=== PATIENT | female | born 2000 | race Caucasian/White ===

== ENCOUNTER 2024-11-12 14:38 | Emergency (ER) | payer BC, SELFPAY ==
[2024-11-12 14:49] VITALS: BP 109/80; PULSE 85; RESP 14; TEMP 36.8; O2SAT 99; BMI 27.0
--- NOTE | 2024-11-12 14:50 | ED_ITS ---
HPI - General Adult General Chief complaint: Weakness Stated complaint: feels faint Time Seen by Provider: 11/12/24 15:05 Related Data Allergies Allergy/AdvReac Type Severity Reaction Status Date / Time No Known Allergies Allergy Verified 11/12/24 14:52 [facility] Social History Social History Advance Directives: No Advance Directives Information Provided: No Do you have a plan to hurt others: No Plan Physical Exam ED Vital Signs: Vital Signs - 24 hr 11/12/24 14:49 11/12/24 16:26 11/12/24 16:27 Temperature 98.3 F Pulse Rate 85 60 58 Respiratory Rate 14 Blood Pressure 109/80 101/67 102/65 Pulse Oximetry 99 Oxygen Delivery Method Room Air 11/12/24 16:28 11/12/24 16:32 Temperature 98.5 F Pulse Rate 68 68 Respiratory Rate 16 Blood Pressure 115/58 L 115/58 L Pulse Oximetry 99 Oxygen Delivery Method Room Air BMI result Body Mass Index 27.0 Course Course Course Narrative: RME performed by Emily Mckeon PA-C. Patient is a 24 year old assigned female at presenting to the emergency department with feeling faint. Patient states that she has been feeling faint over the last 3-4 days. Patient states that she was seen at [facility] where they did a work up and it was negative but her symptoms persist. Detailed physical exam and review of systems are deferred to the gluer. EKG, labs, and swabs ordered. Patient placed back in the waiting room pending room availability and results. Medical Decision Making Medical Decision Making [facility] Narrative: 24-year-old female who is here now with her 2nd ED visit in the last 3 days she was seen at [facility] with basic blood work tell me she was diagnosed with anemia few days ago. She generally has intermittent episodes of generalized weakness feeling like her legs are weak all over she feels generally unwell has to lay down flat. No syncope presyncope. Denies headache palpitations. Her colleagues the other day said when she got when he is episode she appeared slightly pale. No heavy vaginal bleeding she does not take any prescribed medication she has intermittently and occasionally taken actual Gonda over the past few days. Here in the emergency department she looks quite well she is euvolemic comfortable in no distress and has a normal physical examination. Bedside echo reassuring see procedure note. Lab Data [facility] Lab Attestation statement: I reviewed the patient's lab results. 11/12/24 15:23 11/12/24 15:23 Labs: Lab Results 11/12/24 11/12/24 Range/Units 15:23 16:11 WBC 8.6 (4.8-10.8) X10*3/uL RBC 4.01 L (4.20-5.50) X10*6/uL Hgb 11.6 L (12.0-16.0) g/dl Hct 34.6 L (37.0-47.0) % MCV 86.3 (80.0-98.0) fL MCH 28.9 (27.0-33.0) pg MCHC 33.5 (31.0-35.0) g/dl RDW 12.2 (11.0-16.0) % Plt Count 231 (160-400) X10*3/uL MPV 10.5 (9.4-12.3) fL Immature Gran % (Auto) 0.1 (0.0-0.4) % Neut % (Auto) 65.0 (45-73) % Lymph % (Auto) 24.8 (20-40) % [place] % (Auto) 8.3 (2-11) % Eos % (Auto) 1.2 (0-4) % Baso % (Auto) 0.6 (0-2) % Lymph # (Auto) 2.1 (1.2-4.9) X10*3/uL [place] # (Auto) 0.7 (0.1-1.2) X10*3/uL Eos # (Auto) 0.1 (0.0-0.4) X10*3/uL Baso # (Auto) 0.1 (0.0-0.2) X10*3/uL Abs Immat Gran (auto) 0.01 (0.00-0.03) X10*3/uL Absolute Neuts (auto) 5.6 (2.0-8.3) x10*3/uL Absolute Nucleated RBC 0.000 (0.0-0.012) X10*3/uL Nucleated RBC % (auto) 0.0 (0.0-0.2) /100WBC PT 11.9 (10.9-12.4) SEC INR 1.0 (0.9-1.1) Sodium 139 (135-145) mmol/L Potassium 4.2 (3.3-5.1) mmol/L Chloride 107 (96-108) mmol/L Carbon Dioxide 25 (22-29) mmol/L Anion Gap 11 L (12-20) BUN 11 (9-16) mg/dL Creatinine 0.71 (0.5-1.4) mg/dL Estim Creat Clear Calc 131.6 Estimated GFR > 60 Random Glucose 85 (60-115) mg/dL Calcium 9.4 (8.4-10.2) mg/dL Magnesium 2.1 (1.6-2.6) mg/dL Total Bilirubin 0.3 (0.0-1.0) mg/dL AST 23 (5-31) U/L ALT 20 (0-31) U/L Alkaline Phosphatase 44 (39-117) U/L Total Protein 7.3 (6.5-8.0) g/dL Albumin 4.3 (3.5-5.0) g/dL TSH 1.32 (0.32-4.0) uIU/mL Beta HCG, Quant < 2 mIU/mL Urine Color Yellow Urine Appearance Clear Urine pH 8.0 (5.0-9.0) Ur Specific [place] 1.010 (1.005-1.025) Urine Protein Negative (Neg-Trace) mg/dL Urine Glucose (UA) Negative (Negative) mg/dL Urine Ketones Negative (Negative) mg/dL Urine Blood Negative (Negative) Urine Nitrite Negative (Negative) Ur Leukocyte Esterase Negative (Negative) Influenza Type A (PCR) NEGATIVE (Negative) Influenza Type B (PCR) NEGATIVE (Negative) RSV RNA Qual (PCR) NEGATIVE (Negative) SARS-CoV-2 RNA (RT-PCR) NEGATIVE (Negative) Independent Interpretation I performed an independent interpretation of an: EKG Discharge Plan Discharge Clinical Impression: Acute dehydration Patient Disposition: Home, Self-Care Instructions: Dehydration (DC) Additional Instructions: _ DISCHARGE DIAGNOSES: GENERALIZED WEAKNESS OF THE LEGS INTERMITTENT SPELLS OF LIGHTHEADEDNESS HISTORY OF PRESENTATION: EMERGENCY DEPARTMENT COURSE,TESTS, TREATMENTS: While in the ED today ?WE EVALUATED WITH BLOOD WORK WHICH SHOWED VERY MILD ANEMIA YOUR HEMOGLOBIN IS 11.6 HE HAD A NORMAL EKG AND A NORMAL REASSURING ECHOCARDIOGRAM DISCHARGE MEDICATIONS: ?[We have made no changes to your regular medication regimen] FOLLOW-UP: ?Call your primary or general physician soon as possible to discuss your symptoms, your ED visit and to discuss follow up plans CALL YOUR PRIMARY DOCTOR FOR FOLLOW UP INSTRUCTIONS ?& RETURN PRECAUTIONS: If any symptoms change first call your primary physician, if it is after-hours your primary doctors office should have a provider wireless construction manager you can speak with. If the symptoms are severe or very concerning to you then call 911 or return to the ED. DRINK PLENTY OF FLUID WE RECOMMEND AGAINST USING SUPPLEMENTS THAT ARE NOT REGULATED BY THE FDA SUCH [place]DA Michael Mcpherson MD Emergency Physician [facility] Interventions: ED Discharge Assessment Last Done: 11/12/24 16:32 Discharge Date/Time: 11/12/24 16:33 Print Language: Yoruba
--- NOTE | 2024-11-12 14:51 | ECG_ITS ---
Test Reason : WEAKNESS Blood Pressure : */* mmHG Vent. Rate : 64 BPM Atrial Rate : 64 BPM P-R Int : 154 ms QRS Dur : 106 ms QT Int : 406 ms P-R-T Axes : 43 70 47 degrees QTcB Int : 418 ms Normal sinus rhythm with sinus arrhythmia Normal ECG No previous ECGs available Referred By: Emily Mckeon Electronically Signed By: KIRAN KAUR
[2024-11-12 15:32] LABS: MANUAL DIFF FLAG NO
[2024-11-12 15:35] LABS: Basophils Absolute Auto 0.1 X10*3/uL (0.0-0.2); Basophils Percent Auto 0.6 % (0-2); Eosinophils Absolute Auto 0.1 X10*3/uL (0.0-0.4); Eosinophils Percent Auto 1.2 % (0-4); Hematocrit 34.6 % (37.0-47.0); Hemoglobin 11.6 g/dl (12.0-16.0); Imm Gran Abs Auto 0.01 X10*3/uL (0.00-0.03); Imm Gran Pct Auto 0.1 % (0.0-0.4); Lymphocytes Absolute Auto 2.1 X10*3/uL (1.2-4.9); Lymphocytes Percent Auto 24.8 % (20-40); Mean Corpuscular HGB Conc 33.5 g/dl (31.0-35.0); Mean Corpuscular Hemoglobin 28.9 pg (27.0-33.0); Mean Corpuscular Volume 86.3 fL (80.0-98.0); Mean Platelet Volume 10.5 fL (9.4-12.3); Monocytes Absolute Auto 0.7 X10*3/uL (0.1-1.2); Monocytes Percent Auto 8.3 % (2-11); Neutrophils Absolute Auto 5.6 x10*3/uL (2.0-8.3); Platelet Count 231 X10*3/uL (160-400); Red Blood Count 4.01 X10*6/uL (4.20-5.50); Red Cell Distribution Width 12.2 % (11.0-16.0); White Blood Count 8.6 X10*3/uL (4.8-10.8)
[2024-11-12 15:41] LABS: Prothrombin Time 11.9 SEC (10.9-12.4)
--- OUTSIDE RECORDS SUMMARY | 2024-11-12 15:45 | XMS_ITS | Clinical Summary ---
Author Organization [facility] [employer] [facility] Address [address] [place] [address] Care Team Providers Care Health Information Manager Name Role Phone Dalia Bergman MD Primary Care Provider Allergies No known active allergies Medications fluticasone propionate (FLONASE) 50 mcg/actuation nasal spray 2 sprays into each nostril. 07/16/2016 Active loratadine (CLARITIN) 10 mg tablet Take 10 mg by mouth. Active Social History Tobacco Use Types Packs/Day Years Used Date Smoking Tobacco: Never Smokeless Tobacco: Never Comments No Sex and Gender Information Value Date Recorded Sex Assigned at Not on file Legal Sex Female 4:37 PM EST Gender Identity Not on file Sexual Orientation Not on file Last Filed Vital Signs Vital Sign Reading Time Taken Comments Blood Pressure 110/70 06/11/2019 4:51 PM EST Pulse 78 06/11/2019 4:51 PM EST Temperature 37.1 ??C (98.7 ??F) 06/11/2019 4:51 PM ES T Respiratory Rate 16 06/11/2019 4:51 PM EST Oxygen Saturation 98% 06/11/2019 4:51 PM EST Inhaled Oxygen Concentration - - Weight - - Height - - Body Mass Index - - Plan of Treatment Health Maintenance Due Date Last Done Comments Depression: Screening Annually using PHQ-2/9 in Adults 18 yrs or above (or HM Modifier)([facility]) 2018 Hepatitis C Virus Infection in Adolescents and Adults: Screening (or Modifier) ([facility]) 2018 SDOH Screening Reminder: Annually for all adults ([facility]) 2018 Tobacco Smoking Cessation: i n Adults excluding Women: Behavioral and Pharmacotherapy Interventions ([facility]) 2018 Lipid Screening: Once for Women aged 20 to 45 yrs ([facility]) 2020 Cervical Cancer Screenin-65 yrs of age (or Modifier) 2021 Cervical Cancer Screening: Pap every 3 yrs pts age 21-65 2021 Cervical Cancer: Pap Screening with Modifier timing ([facility]) 2021 Cervical Cancer: hrHPV alone or with cotesting Pap for Pts 30-65yrs screening every 5yrs ([facility]) 2021 DTaP/Tdap/Td Vaccines ([facility]) (7 - Td or Tdap) 11/17/2021 11/18/2011, 06/13/2004, 07/27/2001, Additional history exists COVID-19 Vaccine Screening: Initial Series and Booster Status ([facility]) (2023- season) 2024 Flu Vaccination: Yearly for ages 18mos through 64 years (or Modifier)([facility]) 02/03/2025 Zoster/Shingles Vaccine Series Screening: Adults aged 18+ yrs (or HM Modifiers)([facility]) (1 of 2) 2050 03/15/2010, 05/04/2001 Pneumococcal Vaccination Screening: Pts 0-19 & 19-49 yrs of age ([facility]) Aged Out 05/04/2001, 2000, 2000, Additional history exists No longer eligible based on patient's age to complete this topic Medical Devices Not on file Insurance [facility] Care Teams Health Information Manager Relationship Specialty Start Date End Date Bishai, Dalia Aziz, MD [address] [place] [address] PCP - Printer Operator 06/11/19
--- OUTSIDE RECORDS SUMMARY | 2024-11-12 15:45 | XMS_ITS | Clinical Summary ---
Author Organization [facility] Address [address] [place] [id number] Phone Care Team Providers Care Aircraft Launch And Recovery Technician Name Role Phone Unavailable Primary Care Provider Unavailabl e Allergies No known active allergies Medications fluticasone 50 MCG/ACT nasal spray Administer 2 sprays into affected nostril(s). 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 Routine infant or child health check 06/26/2016 Deviated nasal septum 02/13/2012 Allergic rhinitis 11/18/2011 Attention deficit disorder 12/20/2010 Immunizations Immunization Administration Dates Next Due DTaP 06/13/2004, 2,2000,09/15,2000 Hep B 01/19/2001,2000,2000 HiB 07/27/2001, 1,2000,07/21 IPV 06/13/2004, 2,2000,07/21 Influenza 03/15/2010 Influenza, injectable, quadr ivalent, preservative free 06/26/2016 MMR 06/13/2004,05/04/2001 Meningococcal Conj (Menactra) MCV4P 11/18/2011 Pneumococcal, Unspecified 05/04/2001,,2000,07/21 Tdap 11/18/2011 Varicella 03/15/2010,05/04/2001 Family History Relation Name Status Comments Other MOM WAS IN COMA DUE TO ENCEPHALITIS, IN HALF-WAY, STABLE, dementia Social History Tobacco Use Types Packs/Day Years Used Date Smoking Tobacco: Never Comments:never smoker Comments Unknown Sex and Gender Information Value Date Recorded Sex Assigned at Not on file Legal Sex Female 7:12 PM EDT Gender Identity Not on file Sexual Orientation Not on file Last Filed Vital Signs Vital Sign Reading Time Taken Comments Blood Pressure 110/60 06/26/2016 11:33 AM EST Pulse 88 06/02/2018 9:19 AM EST Temperature 36.9 ??C (98.5 ??F) 08/11/2017 3:10 PM ES T Respiratory Rate - - Oxygen Saturation - - Inhaled Oxygen Concentration - - Weight 73.9 kg (163 lb) 06/02/2018 9:19 AM EST Height 169.5 cm (5' 6.75 ) 06/26/2016 11:[address] Body Mass Index - - Plan of Treatment Health Maintenance Due Date Last Done Comments HPV Vaccines (1 - 3-dose series) 2015 Men B Vaccine (2 of 2 - Trumenba SCDM 2-dose series) 11/09/2019 05/11/2019 DTaP,Tdap,and Td Vaccines (7 - Td or Tdap) 11/17/2021 11/18/2011, 06/13/2004, 07/27/2001, Additional history exists Influenza Vaccines (#1) 2024 06/26/2016, 03/15 COVID-19 Vaccine ( season) 2024 11/29/2020, 11/01/2020 Hepatitis B Vaccines Completed 01/19/2001, 2000, 2000 Pneumococcal Vaccine Aged Out 05/04/2001, 2000, 2000, Additional history exists No longer eligible based on patient's age to complete this topic HIB Vaccines Completed 07/27/2001, 10/05, 2000, Additional history exists IPV Vaccines Completed 06/13/2004, 07/07, 2000, Additional history exists MMR Vaccines Completed 06/13/2004, 05/04/2001 Varicella Vaccines Completed 03/15/2010, 05/04/2001 Meningococcal Vaccine Aged Out 11/18/2011 No justine vivien eligible based on patient's age to complete this topic Hepatitis A Vaccines Aged Out No long er eligible based on patient's age to complete this topic Insurance [facility]
--- OUTSIDE RECORDS SUMMARY | 2024-11-12 15:45 | XMS_ITS | Referral Summary ---
Author Organization [facility] Address [address] [place] [address] Care Team Providers Care Field Checker Name Role Phone Unavailable Primary Care Provider Unavailabl e Encounters Date Type Department Care Team Description 08/27/2024 11:38 AM EST - 08/27/2024 2:31 PM [facility] [address] [place] [id number] Ernesto Talbot MD Dizziness (Primary Dx) Discharge Disposition: Home/Self Care 08/26/2024 Travel 08/26/2024 12:42 PM EST - 08/26/2024 2:06 PM [facility] [address] [place] [id number] Discharge Disposition: Left Without Being Seen from Last 3 Months Allergies No known active allergies Medications * This document contains information received from the source organization and may not represent a complete record from that organization. loratadine (Claritin) 10 MG tablet Take 10 mg by mouth 1 (one) time each day. Active albendazole (Albenza) 200 MG tablet Take 400mg PO once. Then repeat in 2 weeks. 4 tablet 2 Active methylPREDNISol one (Medrol Dospak) 4 MG tablets Follow schedule on package instructions. 21 tablet 3 Active Additional Information Patient not taking.Reported on 05/26/2024 Sronyx 0.1-20 MG-MCG tablet 3 Active albuterol (Proventil;Vent prince) 108 (90 Base) MCG/ACT inhaler Inhale 2 puffs every 4 (four) hours if needed for wheezing. 18 g 3 Active Active Problems Problem Noted Date Diagnosed Date Viral illness 06/18/2021 Viral upper respiratory tract infection 06/18/20 21 Allergies 03/05/2021 Assessment & Plan (03/05/2021 2:19 PM EDT): On Claritin on a needed basis Attention deficit hyperactivity disorder (ADHD) 03/05/2021 Assessment & Plan (03/05/2021 2:20 PM EDT): Patient will schedule an appointment with psychiatrist to consider resuming medication for ADHD Annual physical exam 02/16/2021 Assessment & Plan (03/05/2021 2:18 PM EDT): She was advice regarding diet and exercise under take measures aimed at achieving and maintaining body weight closer to ideal weight Hypopigmentation 02/16/2021 Assessment & Plan (03/05/2021 2:19 PM EDT): Patient indicated that the hypopigmentation on her back has resolved Anxiety 02/05/2021 Assessment & Plan (03/05/2021 2:18 PM EDT): Continue ongoing Therapy with Dr. 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 Deviated nasal septum 02/13/2012 Allergic rhinitis 11/18/2011 Immunizations Name Administration Dates Next Due DTaP 06/13/2004, 2,2000,09/15,2000 Hep B, Unspecified 01/19/2001,2000, 000 HiB 07/27/2001, 1,2000,07/21 IPV 06/13/2004, 2,2000,07/21 Influenza, Quadrivalent, Pre servative Free 06/26/2016 Influenza, Unspecified 03/15/2010 MMR 06/13/2004,05/04/2001 Meningococcal B Vaccine, Recombinant 05/10/2019 Meningococcal MCV4P 11/18/2011 Pneumococcal, Unspecified 05/04/2001,,2000,07/21 Tdap 11/18/2011 Varicella (VARIVAX) 03/15/2010,05/04/2001 Social History Tobacco Use Types Packs/Day Years Used Date Smoking Tobacco: Never Smokeless Tobacco: Never Alcohol Use Standard Drinks/Week Comments Yes 0 (1 standard drink = 0.6 oz pure alcohol) Do you drink alcohol? No ,Did you have a drink containing alcohol in the past year?: No [id number] Health Literacy Answer Date Recor ded How often do you need to hav e someone help you when you read instructions, pamphlets, or other written material from your doctor or pharmacy? Never 08/27/2024 Comments No Sex and Gender Information Value Date Recorded Sex Assigned at Female 04/18/2024 1:26 PM EDT Legal Sex Female 10:55 PM EDT Gender Identity Female 04/18/2024 1:26 PM EDT Sexual Orientation Straight 04/18/2024 1: 26 PM EDT Last Filed Vital Signs Vital Sign Reading Time Taken Comments Blood Pressure 110/67 08/27/2024 2:00 PM EST Pulse 79 08/27/2024 2:00 PM EST Temperature 36.8 ??C (98.3 ??F) 08/27/2024 11:[address] Respiratory Rate 17 08/27/2024 2:00 PM EST Oxygen Saturation 99% 08/27/2024 2:00 PM EST Inhaled Oxygen Concentration - - Weight 78 kg (172 lb) 08/27/2024 11:36 AM EST Height 170.2 cm (5' 7 ) 08/27/2024 11:36 AM EST Body Mass Index 26.94 08/27/2024 11:36 AM EST Functional Status * Are you deaf or do you have serious difficulty hearing? Answer Date of Assessment Author No 08/27/2024 11:52 AM EST * Are you blind or do you have serious difficulty seeing, even when wearing glasses? Answer Date of Assessment Author No 08/27/2024 11:52 AM EST Gisel Becerra, SANDIE Plan of Treatment Not on file Procedures Procedure Name Priority Date/Time Associated Diagnosis Comments URINALYSIS WITH REFLEX MICROSCOPIC AND CULTURE STAT 08/27/2024 12:35 PM EST HCG, URINE, QUALITATIVE STAT 08/27/2024 12:35 PM EST ECG 12-LEAD STAT 08/27/2024 12:08 PM EST CBC W/AUTO DIFFERENTIAL STAT 08/27/2024 12:06 PM EST TSH W/REFLEX FT4 STAT 08/27/2024 12:0 6 PM EST MAGNESIUM STAT 08/27/2024 12:06 PM EST COMPREHENSIVE METABOLIC PANEL STAT 08/27/2024 12:06 PM EST CBC W/AUTO DIFFERENTIAL STAT 08/27/2024 12:06 PM EST from Last 3 Months Results * hCG, urine, qualitative (08/27/2024 12:35 PM EST) Internal Control Line Confirmed 08/27/2024 12:46 PM [facility] HCG QUAL, UR Negative Negative 08/27/2024 12:46 PM [facility] Urine Urine specimen obtained by clean catch procedure / Unknown Non-blood Collection / Unknown 08/27/2024 12:35 PM EST 08/27/2024 12:41 PM EST us Ernesto Talbot MD LAB URINE ORDERABLES Final Re sult [address] [id number] * Urinalysis with Reflex microscopic and culture (08/27/2024 12:35 PM EST) Color, Urine Yellow Yellow, Dark Yellow 08/27/2024 12:48 PM [facility] Appearance, Urine Clear Clear, Slightly Cloudy 08/27/2024 12:48 PM [facility] Glucose, Urine Negative Negative mg/dL 08/27/2024 12:48 PM [facility] Bilirubin, Urine Negative Negative 08/27/2024 12:48 PM [facility] Ketone, Urine Negative Negative mg/dL 08/27/2024 12:48 PM [facility] Specific [place], Urine 1.022 1.001 - 1.030 08/27/2024 12:48 PM [facility] pH, Urine 7.5 5.0 - 8.0 08/27/2024 12:48 PM [facility] Protein, Urine Negative Negative mg/dL 08/27/2024 12:48 PM [facility] Urobilinogen, Urine 0.2 0.2 - 1.0 EU/dL 08/27/2024 12:48 PM [facility] Nitrites, Urine Negative Negative 08/27/2024 12:48 PM [facility] Leukocyte Esterase, Urine Negative Negative 08/27/2024 12:48 PM [facility] Hemoglobin, Urine Negative Negative 08/27/2024 12:48 PM [facility] Urine Urine specimen obtained by clean catch procedure / Unknown Non-blood Collection / Unknown 08/27/2024 12:35 PM EST 08/27/2024 12:41 PM EST us Ernesto Talbot MD LAB URINE ORDERABLES Final Re sult [address] [address] * EKG 12 lead (08/27/2024 12:08 PM EST) MUSE DIAGNOSIS CLASS Normal [facility] MUSE VENTRICULAR RATE 66 BPM [facility] MUSE ATRIAL RATE 66 BPM [facility] MUSE MA INTERVAL 172 ms [facility] MUSE QRS DURATION 102 ms [facility] MUSE QT INTERVAL 398 ms [facility] MUSE QTC CALCULATION 417 ms [facility] MUSE P AXIS 33 degrees [facility] MUSE R AXIS 59 degrees [facility] MUSE T AXIS 29 degrees [facility] 08/27/2024 12:0 8 PM EST 08/28/2024 2:12 PM EST Narrative [facility] - 08/28/2024 2:12 PM EST NORMAL SINUS RHYTHM NORMAL ECG WHEN COMPARED WITH ECG OF 09-Jan-2024 08:53, NO SIGNIFICANT CHANGE WAS FOUND Confirmed by Wicho Oliver ([id number]) on 08/28/2024 2:12:32 PM Procedure Note Wicho Oliver MD - 08/28/2024 NORMAL SINUS RHYTHM NORMAL ECG WHEN COMPARED WITH ECG OF 09-Jan-2024 08:53, NO SIGNIFICANT CHANGE WAS FOUND Confirmed by Wicho lOiver ([id number]) on 08/28/2024 2:12:32 PM us Ernesto Talbot MD ECG ORDERABLES Final Result [facility] * TSH W/REFLEX FT4 (08/27/2024 12:06 PM EST) [facility] THYROID STIM HORM 1.217 0.550 - 4.780 uIU/mL 08/27/2024 12:31 PM [facility] Blood Venous blood specimen / Unknown Venipuncture / Unknown 08/27/2024 12:06 PM EST 08/27/2024 12:09 PM EST us Ernesto Talbot MD LAB BLOOD ORDERABLES Final Re sult [address] [address] * CBC W/AUTO DIFFERENTIAL (08/27/2024 12:06 PM EST) [facility] Auto WBC 5.8 4.0 - 10.0 1000/uL 08/27/2024 12:12 PM [facility] Red Blood Count 4.06 3.93 - 5.22 Million/uL 08/27/2024 12:12 PM [facility] Hemoglobin 11.9 11.2 - 15.7 g/dL 08/27/2024 12:12 PM [facility] Hematocrit 34.4 34.1 - 44.9 % 08/27/2024 12:12 PM [facility] MCV 84.7 79.4 - 94.8 fL 08/27/2024 12:12 PM [facility] MCH 29.3 25.6 - 32.2 pg/RBC 08/27/2024 12:12 PM [facility] MCHC 34.6 32.2 - 35.5 g/dL 08/27/2024 12:12 PM [facility] RDWSD 37.3 36.4 - 46.3 Fl 08/27/2024 12:12 PM [facility] Platelets 223 182 - 369 1000/uL 08/27/2024 12:12 PM [facility] Mean Platelet Volume 10.5 9.4 - 12.3 fL 08/27/2024 12:12 PM [facility] Neutrophils Relative 50.6 34.0 - 71.1 % 08/27/2024 12:12 PM [facility] Lymphocytes Relative 37.4 19.3 - 51.7 % 08/27/2024 12:12 PM [facility] Monocytes Relative 9.0 4.7 - 12.5 % 08/27/2024 12:12 PM [facility] Eosinophils Relative 2.1 0.7 - 5.8 % 08/27/2024 12:12 PM [facility] Basophils Relative 0.7 0.1 - 1.2 % 08/27/2024 12:12 PM [facility] NUCLEATED RBC % - AUTOMATED 0.0 0.0 - 0.2 % 08/27/2024 12:12 PM [facility] Neutrophils Absolute 2.94 1.56 - 6.13 1000/uL 08/27/2024 12:12 PM [facility] Lymphocytes Absolute 2.17 1.18 - 3.74 1000/uL 08/27/2024 12:12 PM [facility] Monocytes Absolute 0.52 0.30 - 0.82 1000/uL 08/27/2024 12:12 PM [facility] Eosinophils Absolute 0.12 0.04 - 0.36 1000/uL 08/27/2024 12:12 PM [facility] Basophils Absolute 0.04 0.01 - 0.08 1000/uL 08/27/2024 12:12 PM [facility] ABSOLUTE NUCLEATED RBC 0.00 0 - 0.01 k/ul 08/27/2024 12:12 PM [facility] Blood Venous blood specimen / Unknown Venipuncture / Unknown 08/27/2024 12:06 PM EST 08/27/2024 12:09 PM EST Ernesto Talbot MD LAB BLOOD ORDERABLES Final Re sult Performing Organization Address [facility]/ZIP Co de Phone Number [address] [phone] * Magnesium (08/27/2024 12:06 PM EST) Pathologist [facility] Magnesium 1.89 1.60 - 2.60 mg/dl 08/27/2024 12:29 PM [facility] Blood Venous blood specimen / Unknown Venipuncture / Unknown 08/27/2024 12:06 PM EST 08/27/2024 12:09 PM EST Ernesto Talbot MD LAB BLOOD ORDERABLES Final Re sult Performing Organization Address [facility] Co de Phone Number [address] [phone] * Comprehensive metabolic panel (08/27/2024 12:06 PM EST) Pathologist [facility] Sodium 139 136 - 145 mmol/L 08/27/2024 12:29 PM [facility] Potassium 4.0 3.5 - 5.1 mmol/L 08/27/2024 12:29 PM [facility] Chloride 106 98 - 107 mmol/L 08/27/2024 12:29 PM [facility] Carbon Dioxide 25 20 - 31 mmol/L 08/27/2024 12:29 PM [facility] Anion Gap 8 6 - 14 mmol/L 08/27/2024 12:29 PM [facility] Glucose 90 74 - 106 mg/dL 08/27/2024 12:29 PM [facility] Urea Nitrogen 12 9 - 23 mg/dL 08/27/2024 12:29 PM [facility] Creatinine 0.75 0.55 - 1.02 mg/dL 08/27/2024 12:29 PM [facility] eGFR 114 >60 ml/min/1.7 3m2 08/27/2024 12:29 PM [facility] CALCIUM 9.4 8.3 - 10.6 mg/dL 08/27/2024 12:29 PM [facility] ALKALINE PHOSPHATASE 47.0 46.0 - 116.0 U/L 08/27/2024 12:29 PM [facility] ALT/SGPT 17.0 7.0 - 40.0 U/L 08/27/2024 12:29 PM [facility] AST/SGOT 16 13 - 40 U/L 08/27/2024 12:29 PM [facility] Total Bilirubin 0.3 0.3 - 1.2 mg/dL 08/27/2024 12:29 PM [facility] Total Protein 7.9 5.7 - 8.2 g/dL 08/27/2024 12:29 PM [facility] Albumin 4.3 3.4 - 5.0 g/dL 08/27/2024 12:29 PM [facility] Globulin 3.6 2.0 - 3.9 g/dL 08/27/2024 12:29 PM [facility] A/G Ratio 1.2 1.2 - 2.4 ug/mL 08/27/2024 12:29 PM [facility] Blood Venous blood specimen / Unknown Venipuncture / Unknown 08/27/2024 12:06 PM EST 08/27/2024 12:09 PM EST Ernesto Talbot MD LAB BLOOD ORDERABLES Final Re sult [facility] [address] [facility] [place] [phone] from Last 3 Months Insurance PPO [facility] GENERIC Member Subscriber Plan / Payer ( fective 2024-Present) Name:Stephanie Martins Relation to Subscriber:Self Name:Stephanie Martins Payer ID:Not on file Group ID:Not on file Type:[facility] Address: [address] PPO
--- OUTSIDE RECORDS SUMMARY | 2024-11-12 15:45 | XMS_ITS | Clinical Summary ---
Author Organization [facility] Address [address] [place] [address] Care Team Providers Care Landscape Architecture Professor Name Role Phone Unavailable Primary Care Provider Unavailabl e Allergies No known active allergies Medications * [...] Deviated nasal septum 02/13/2012 Allergic rhinitis 11/18/2011 Encounters Date Type Department Care Team Description 08/27/2024 11:38 AM EST - 08/27/2024 2:31 PM [facility] [address] [place] [id number] Ernesto Talbot MD Dizziness (Primary Dx) Discharge Disposition: Home/Self Care 08/26/2024 12:42 PM EST - 08/26/2024 2:06 PM [facility] [address] [place] [phone] Discharge Disposition: Left Without Being Seen 08/26/2024 Travel from Last 3 Months Immunizations Name Administration Dates Next Due DTaP 06/13/2004, 2,2000,09/15,2000 Hep B, Unspecified 01/19/2001,2000, 000 HiB 07/27/2001, 1,2000,07/21 IPV 06/13/2004, 2,2000,07/21 Influenza, Quadrivalent, Pre servative Free 06/26/2016 Influenza, Unspecified 03/15/2010 MMR 06/13/2004,05/04/2001 Meningococcal B Vaccine, Recombinant 05/10/2019 Meningococcal MCV4P 11/18/2011 Pneumococcal, Unspecified 05/04/2001,,2000,07/21 Tdap 11/18/2011 Varicella (VARIVAX) 03/15/2010,05/04/2001 Family History Medical History Relation Comments Cervical cancer Maternal Grandfather Vision loss Maternal Grandfather ADEM Mother at age 3 Emphysema Paternal Grandfather Lung cancer Paternal Grandmother Relation Status Comments Maternal Grandfather Alive Mother Alive Paternal Grandfather (Age 47) Paternal Grandmother Social History Tobacco Use Types Packs/Day Years [...] Mass Index 26.94 08/27/2024 11:36 AM EST Plan of Treatment Health Maintenance Due Date Last Done Comments Hepatitis C Screening 2000 HIV Screening 2015 HPV Vaccines (1 - 3-dose series) 2015 Chlamydia Screening 2016 Pap Smear 2021 DTaP,Tdap,and Td Vaccines (7 - Td or Tdap) 11/17/2021 11/18/2011, 06/13/2004, 07/27/2001, Additional history exists Annual Wellness Visit 03/05/2022 03/05/2021 COVID-19 Vaccine ( season) 2024 11/29/2020, 11/01/2020 Pneumococcal Vaccine: 65+ Years Discontinued 05/04/2001, 2000, 2000, Additional history exists Pneumococcal Vaccine: Pediatrics (0 to 5 Years) and At-Risk Patients (6 to 64 Years) Aged Out 05/04/2001, 2000, 2000, Additional history exists No longer eligible based on patient's age to complete this topic HIB Vaccines Discontinued 07/27/2001, 10/05, 2000, Additional history exists IPV Vaccines Discontinued 06/13/2004, 07/07, 2000, Additional history exists MMR Vaccines Discontinued 06/13/2004, 05/04/2001 Varicella Vaccines Discontinued 03/15/2010, 05/04/2001 Zoster Vaccines Discontinued 03/15/2010, 05/04/2001 Meningococcal Vaccine Aged Out 05/11/2019 , 05/10/2019, 11/18/2011 No longer eligible based on patient's age to complete this topic Hepatitis B Vaccines Discontinued 03/04/2024, 01/19/2001, 2000, Additional history exists Influenza Vaccine Completed 03/29/2024, , 03/15/2010 Procedures Procedure Name Priority Date/Time Associated Diagnosis [...] hCG, urine, qualitative (08/27/2024 12:35 PM EST) Pathologist [facility] Internal Control Line Confirmed 08/27/2024 12:46 PM [facility] HCG QUAL, UR Negative Negative 08/27/2024 12:46 PM [facility] Urine Urine specimen obtained by clean catch procedure / Unknown Non-blood Collection / Unknown 08/27/2024 12:35 PM EST 08/27/2024 12:41 PM EST us Ernesto Talbot MD LAB URINE ORDERABLES Final Re sult [address] [phone] * Urinalysis with Reflex microscopic and culture (08/27/2024 12:35 PM EST) Pathologist [facility] Color, Urine Yellow Yellow, Dark Yellow 08/27/2024 12:48 PM [facility] Appearance, Urine Clear Clear, Slightly Cloudy 08/27/2024 12:48 PM [facility] Glucose, Urine Negative Negative mg/dL 08/27/2024 12:48 PM [facility] Bilirubin, Urine Negative Negative 08/27/2024 12:48 PM [facility] Ketone, Urine Negative Negative mg/dL 08/27/2024 12:48 PM [facility] Specific [place], Urine 1.022 1.001 - 1.030 08/27/2024 12:48 PM [facility] pH, Urine 7.5 5.0 - 8.0 08/27/2024 12:48 PM [facility] Protein, Urine Negative Negative mg/dL 08/27/2024 12:48 PM [facility] Urobilinogen, Urine 0.2 0.2 - 1.0 EU/dL 08/27/2024 12:48 PM EST [facility] Nitrites, Urine Negative Negative 08/27/2024 12:48 PM EST [facility] Leukocyte Esterase, Urine Negative Negative 08/27/2024 12:48 PM EST [facility] Hemoglobin, Urine Negative Negative 08/27/2024 12:48 PM EST [facility] Urine Urine specimen obtained by clean catch procedure / Unknown Non-blood Collection / Unknown 08/27/2024 12:35 PM EST 08/27/2024 12:41 PM EST us Ernesto Talbot MD LAB URINE ORDERABLES Final Re sult [facility] [address] [place] [address] * EKG 12 lead (08/27/2024 12:08 PM EST) MUSE DIAGNOSIS CLASS Normal [facility] MUSE VENTRICULAR RATE 66 BPM [facility] MUSE ATRIAL RATE 66 BPM [facility] MUSE ND INTERVAL 172 ms [facility] [...] PM EST 08/28/2024 2:12 PM EST Narrative [facility] - 08/28/2024 2:12 PM EST NORMAL SINUS RHYTHM NORMAL ECG WHEN COMPARED WITH ECG OF 09-Jan-2024 08:53, NO SIGNIFICANT CHANGE WAS FOUND Confirmed by Wicho Oliver ([id number]) on 08/28/2024 2:12:32 PM Procedure Note Wicho Oliver MD - 08/28/2024 NORMAL SINUS RHYTHM NORMAL ECG WHEN COMPARED WITH ECG OF 09-Jan-2024 08:53, NO SIGNIFICANT CHANGE WAS FOUND Confirmed by Wicho Oliver ([id number]) on 08/28/2024 2:12:32 PM us Ernesto Talbot MD ECG ORDERABLES Final Result [facility] * TSH W/REFLEX FT4 (08/27/2024 12:06 PM EST) THYROID STIM HORM 1.217 0.550 - 4.780 uIU/mL 08/27/2024 12:31 PM [facility] Blood Venous blood specimen / Unknown Venipuncture / Unknown 08/27/2024 12:06 PM EST 08/27/2024 12:09 PM EST Ernesto Talbot MD LAB BLOOD ORDERABLES Final Re sult [facility] [address] [place] [phone] * CBC W/AUTO DIFFERENTIAL (08/27/2024 12:06 PM EST) [facility] Auto WBC 5.8 4.0 - 10.0 1000/uL 08/27/2024 12:12 PM [facility] Red Blood Count 4.06 3.93 - 5.22 Million/uL 08/27/2024 12:12 PM [facility] Hemoglobin 11.9 11.2 - 15.7 g/dL 08/27/2024 12:12 PM [facility] Hematocrit 34.4 34.1 - 44.9 % 08/27/2024 12:12 PM [facility] MCV 84.7 79.4 - 94.8 fL 08/27/2024 12:12 PM [facility] MCH 29.3 25.6 - 32.2 pg/RBC 08/27/2024 12:12 PM [facility] MCHC 34.6 32.2 - 35.5 g/dL 08/27/2024 12:12 PM [facility] RDWSD 37.3 36.4 - 46.3 Fl 08/27/2024 12:12 PM [facility] Platelets 223 182 - 369 1000/uL 08/27/2024 12:12 PM [facility] Mean Platelet Volume 10.5 9.4 - 12.3 fL 08/27/2024 12:12 PM [facility] Neutrophils Relative 50.6 34.0 - 71.1 % 08/27/2024 12:12 PM [facility] Lymphocytes Relative 37.4 19.3 - 51.7 % 08/27/2024 12:12 PM [facility] Monocytes Relative 9.0 4.7 - 12.5 % 08/27/2024 12:12 PM [facility] Eosinophils Relative 2.1 0.7 - 5.8 % 08/27/2024 12:12 PM [facility] Basophils Relative 0.7 0.1 - 1.2 % 08/27/2024 12:12 PM [facility] NUCLEATED RBC % - AUTOMATED 0.0 0.0 - 0.2 % 08/27/2024 12:12 PM [facility] Neutrophils Absolute 2.94 1.56 - 6.13 1000/uL 08/27/2024 12:12 PM [facility] Lymphocytes Absolute 2.17 1.18 - 3.74 1000/uL 08/27/2024 12:12 PM [facility] Monocytes Absolute 0.52 0.30 - 0.82 1000/uL 08/27/2024 12:12 PM [facility] Eosinophils Absolute 0.12 0.04 - 0.36 1000/uL 08/27/2024 12:12 PM [facility] Basophils Absolute 0.04 0.01 - 0.08 1000/uL 08/27/2024 12:12 PM [facility] ABSOLUTE NUCLEATED RBC 0.00 0 - 0.01 k/ul 08/27/2024 12:12 PM [facility] Blood Venous blood specimen / Unknown Venipuncture / Unknown 08/27/2024 12:06 PM EST 08/27/2024 12:09 PM EST us Ernesto Talbot MD LAB BLOOD ORDERABLES Final Re sult [facility] [address] [place] [phone] * Magnesium (08/27/2024 12:06 PM EST) Magnesium 1.89 1.60 - 2.60 mg/dl 08/27/2024 12:29 PM [facility] Blood Venous blood specimen / Unknown Venipuncture / Unknown 08/27/2024 12:06 PM EST 08/27/2024 12:09 PM EST Ernesto Talbot MD LAB BLOOD ORDERABLES Final Re sult [facility] [address] [facility] [place] [phone] * Comprehensive metabolic panel (08/27/2024 12:06 PM EST) Sodium 139 136 - 145 mmol/L 08/27/2024 12:29 PM [facility] Potassium 4.0 3.5 - 5.1 mmol/L 08/27/2024 12:29 PM [facility] Chloride 106 98 - 107 mmol/L 08/27/2024 12:29 PM [facility] Carbon Dioxide 25 20 - 31 mmol/L 08/27/2024 12:29 PM [facility] Anion Gap 8 6 - 14 mmol/L 08/27/2024 12:29 PM [facility] Glucose 90 74 - 106 mg/dL 08/27/2024 12:29 PM [facility] Urea Nitrogen 12 9 - 23 mg/dL 08/27/2024 12:29 PM [facility] Creatinine 0.75 0.55 - 1.02 mg/dL 08/27/2024 12:29 PM [facility] eGFR 114 >60 ml/min/1.7 3m2 08/27/2024 12:29 PM [facility] CALCIUM 9.4 8.3 - 10.6 mg/dL 08/27/2024 12:29 PM [facility] ALKALINE PHOSPHATASE 47.0 46.0 - 116.0 U/L 08/27/2024 12:29 PM [facility] ALT/SGPT 17.0 7.0 - 40.0 U/L 08/27/2024 12:29 PM [facility] AST/SGOT 16 13 - 40 U/L 08/27/2024 12:29 PM [facility] Total Bilirubin 0.3 0.3 - 1.2 mg/dL 08/27/2024 12:29 PM [facility] Total Protein 7.9 5.7 - 8.2 g/dL 08/27/2024 12:29 PM [facility] Albumin 4.3 3.4 - 5.0 g/dL 08/27/2024 12:29 PM [facility] Globulin 3.6 2.0 - 3.9 g/dL 08/27/2024 12:29 PM [facility] A/G Ratio 1.2 1.2 - 2.4 ug/mL 08/27/2024 12:29 PM [facility] Blood Venous blood specimen / Unknown Venipuncture / Unknown 08/27/2024 12:06 PM EST 08/27/2024 12:09 PM EST us Ernesto Talbot MD LAB BLOOD ORDERABLES [facility] Organization Address City/State/ZIP Co de Phone Number [facility] [address] [place] [address] from Last 3 Months Insurance PPO [facility] P[facility]
--- OUTSIDE RECORDS SUMMARY | 2024-11-12 15:45 | XMS_ITS | Clinical Summary ---
Author Organization [facility] Address [address] [address] Phone Care Team Providers Care Copy Center Associate Name Role Phone Pcp, Unknown Primary Care Provider Unavailabl e Allergies No known active allergies Medications Medication Sig Dispensed Refills Start Date End Date Status albuterol 90 mcg/actuation inhaler Inhale 2 puffs into the lungs. 06/13/2023 Active fluticasone propionate (FLONASE) 50 mcg/actuation nasal spray 2 sprays by Nasal route. 07/16/2016 Active levonorgestrel-ethiny l estradiol (AVIANE,ALESSE,LESSIN A) 0.1-0.02 mg per tablet 05/30/2023 Active loratadine (CLARITIN) 10 mg tablet Take 10 mg by mouth daily. Active SUMAtriptan (IMITREX) 50 MG tablet Take 50 mg by mouth. 08/30/2024 08/30/2025 Active Active Problems No known active problems Encounters Date Type Department Care Team Description 10/27/2024 8:30 AM EDT Office Visit [facility] [address] [address] Ellie Jaime, MARYAM Otalgia, right (Primary Dx); Viral upper respiratory tract infection from Last 3 Months Family History Medical History Relation Comments Diabetes Neg Hx Glaucoma Neg Hx Macular degeneration Neg Hx Social History Tobacco Use Types Packs/Day Years Used Date Smoking Tobacco: Never Smokeless Tobacco: Never Alcohol Use Standard Drinks/Week Comments Not Currently 0 (1 standard drink = 0.6 oz pur e alcohol) Education Answer Date Recorded Are you interested in more education? Not on sal e 10/31/2022 Are you concerned about learning? Not on file 10/31/2022 No 10/31/2022 No 10/31/2022 Digital Access Answer Date Recorded No 11/29/2022 No 11/29/2022 Reliable internet access at home? Not on file 11/29/2022 Device with a working camera? Not on file Sex and Gender Information Value Date Recorded Sex Assigned at Not on file Gender Identity Not on file Sexual Orientation Not on file Last Filed Vital Signs Vital Sign Reading Time Taken Comments Blood Pressure 107/73 10/27/2024 8:25 AM EDT Pulse 88 10/27/2024 8:25 AM EDT Temperature 37.3 ??C (99.1 ??F) 10/27/2024 8:25 AM ED T Respiratory Rate 16 10/27/2024 8:25 AM EDT Oxygen Saturation 98% 10/27/2024 8:25 AM EDT Inhaled Oxygen Concentration - - Weight 77.1 kg (170 lb) 10/27/2024 8:25 AM EDT Height 170.2 cm (5' 7 ) 10/27/2024 8:25 AM EDT Body Mass Index 26.63 10/27/2024 8:25 AM EDT Plan of Treatment Health Maintenance Due Date Last Done Comments DEPRESSION SCREENING 2012 HPV VACCINES (1 - 3-dose series) 2015 CHLAMYDIA SCREENING 2016 HEPATITIS C SCREENING 2018 HIV ONE-TIME SCREENING (18-6 5 YEARS) 2018 PAP SMEAR 2021 Adult Td,Tdap Booster 11/17/2021 11/18/2011 COVID-19 VACCINE (2 - 2023-2 5 season) 2024 11/01/2020 SMOKING Hx and SMOKELESS TOB ACCO SCREENING 10/27/2025 10/27/2024 MENINGOCOCCAL VACCINES (ACWY) Aged Out 11/18/2011 No longer eligible based on patient's age to complete this topic HEPATITIS A VACCINES Aged Out No long er eligible based on patient's age to complete this topic HIB VACCINES Aged Out No longer eligi ble based on patient's age to complete this topic PNEUMOCOCCAL VACCINES (0-49 years) Aged Out No longer eligible based on patient's age to complete this topic Medical Devices Not on file Procedures Procedure Name Priority Date/Time Associated Diagnosis Comments POCT COVID-19 RT-PCR/INFLUENZA A & B/RSV CEPHEID Routine 10/27/2024 8:33 AM EDT right Diane from Last 3 Months Results * POCT COVID-19 RT-PCR/Influenza A & B/RSV (Cepheid) (10/27/2024 8:33 AM EDT) [facility] RSV PCR Negative Negative [facility] SARS-CoV-2 (COVID-19) Negative Negative [facility] POC Influenza A PCR Negative Negative [facility] Influenza B PCR Negative Negative [facility] 10/27/2024 8:33 AM EDT 10/27/2024 9:13 AM EDT Ellie 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 It is not the complete legal health record.[facility]
--- OUTSIDE RECORDS SUMMARY | 2024-11-12 15:46 | XMS_ITS | Clinical Summary ---
Author Organization [facility] Address [address] [place] [address] Care Team Providers Care Shuttle Route Vehicle Operator Name Role Phone Pcp, No Primary Care Provider Unavailabl e Allergies No known active allergies Medications fluticasone propionate (FLONASE) 50 MCG/ACT nasal spray 2 sprays by Each Nostril route daily. 16 g 0 07/16/2016 Active loratadine (CLARITIN) 10 MG tablet Take 1 tablet (10 mg total) by mouth daily Active SUMAtriptan (IMITREX) 50 MG tablet Take 1 tablet (50 mg total) by mouth once as needed for migraine May repeat in 2 hours if unresolved. Do not exceed more than 2 doses in 24 hours. 12 tablet 2 08/30/2024 08/30/19 26 Active Active Problems No known active problems Encounters Date Type Department Care Team Description 08/29/2024 10:30 AM EST Office Visit [facility] [address] [place] [phone] Sandeep Paul MD Migraine with aura and without status migrainosus, not intractable (Primary Dx) 08/27/2024 9:50 AM EST - 08/27/2024 10:35 AM EST Hospital Encounter [facility], [address] [place] [address] Xander Aldrich PA Headache Discharge Disposition: Home or Self Care 08/27/2024 Travel from Last 3 Months Family History Medical History Relation Name Comments No Known Problems Brother No Known Problems Father Stroke Mother Relation Name Status Comments Brother Alive Father Alive Mother Alive Social History Tobacco Use Types Packs/Day Years Used Date Smoking Tobacco: Never Smokeless Tobacco: Never Tobacco Cessation:Counseling Given: Not Answered Alcohol Use Standard Drinks/Week Comments Not Currently 0 (1 standard drink = 0.6 oz pur e alcohol) Comments No Sex and Gender Information Value Date Recorded Sex Assigned at Female 08/29/2024 6:59 AM EST Legal Sex Female 8:44 PM EDT Gender Identity Female 08/29/2024 6:59 AM EST Sexual Orientation Straight 08/29/2024 6: 59 AM EST Last Filed Vital Signs Vital Sign Reading Time Taken Comments Blood Pressure 109/73 08/29/2024 10:29 AM EST Pulse 80 08/29/2024 10:29 AM EST Temperature 36.6 ??C (97.8 ??F) 08/27/2024 9:57 AM ES T Respiratory Rate 18 08/27/2024 9:57 AM EST Oxygen Saturation 100% 08/27/2024 9:57 AM EST Inhaled Oxygen Concentration - - Weight 78 kg (172 lb) 08/29/2024 10:29 AM EST Height 170.2 cm (5' 7 ) 08/29/2024 10:29 AM EST Body Mass Index 26.94 08/29/2024 10:29 AM EST Plan of Treatment Health Maintenance Due Date Last Done Comments Annual Physical 2003 Hepatitis B Screening 2018 DTaP,Tdap,and Td Vaccines (7 - Td or Tdap) 11/17/2021 11/18/2011, 06/13/2004, 07/27/2001, Additional history exists COVID-19 Vaccine ( season) 2024 11/29/2020, 11/01/2020 Pneumococcal Vaccines 0-49 yrs (includes High Risk) Aged Out 05/04/2001, 2000, 2000, Additional history exists No longer eligible based on patient's age to complete this topic HIB Vaccines Completed 07/27/2001, 10/05, 2000, Additional history exists Influenza Vaccine Completed 03/29/2024, , 03/15/2010 Hepatitis A Vaccine Aged Out No longe r eligible based on patient's age to complete this topic Procedures Procedure Name Priority Date/Time Associated Diagnosis Comments AMB REFERRAL TO NEUROLOGY First Available/Routine 08/30/2024 8:08 AM EST Headache from Last 3 Months Results * Outpatient referral to Neurology (08/30/2024 8:08 AM EST) us Xander WHITE OUTPATIENT REFERRAL ORDER SIRENA Final Result from Last 3 Months Insurance [facility] PPO [facility] PPO Care Teams Shuttle Route Vehicle Operator Relationship Specialty [place] [phone] PCP - General 08/27/24
--- OUTSIDE RECORDS SUMMARY | 2024-11-12 15:46 | XMS_ITS | Clinical Summary ---
Author Organization [facility] Address [address] [place] [address] Phone Care Team Providers Care Public Services Librarian Name Role Phone Unavailable Primary Care Provider Unavailabl e Allergies No known active allergies Medications albuterol HFA (PROVENTIL HFA;VENTOLIN HFA) 108 (90 Base) MCG/ACT inhaler Inhale 2 puffs 3 Active fluticasone (FLONASE) 50 MCG/ACT nasal spray Administer 2 sprays into affected nostril(s) 7 Active SUMAtriptan (IMITREX) 50 MG tablet Take 50 mg by mouth 5 08/30/19 26 Active Encounters Date Type Department Care Team Description 10/10/2024 Telephone [facility] - Obstetrics and Gynecology [address] [place] [phone] Christine Pratt RN Test Results 09/19/2024 4:20 PM EDT Lab [facility] [place] - Laboratory [address], [address] [place] [address] Encounter for annual routine gynecological examination 09/19/2024 11:00 AM EDT Office Visit [facility] in [place] - Obstetrics and Gynecology [address], [address] [place] [address] Vicky Arroyo MD Encounter for annual routine gynecological examination (Primary Dx) from Last 3 Months Social History Tobacco Use Types Packs/Day Years Used Date Smoking Tobacco: Never Passive Smoke Exposure: Never Smokeless Tobacco: Never Tobacco Cessation:Counseling Given: Not Answered Alcohol Use Standard Drinks/Week Comments Yes 0 (1 standard drink = 0.6 oz pur e alcohol) social Comments Unknown Sex and Gender Information Value Date Recorded Sex Assigned at Not on file Legal Sex Female 10:46 AM EST Gender Identity Not on file Sexual Orientation Not on file Last Filed Vital Signs Vital Sign Reading Time Taken Comments Blood Pressure 102/60 09/19/2024 11:10 AM EDT Pulse - - Temperature - - Respiratory Rate - - Oxygen Saturation - - Inhaled Oxygen Concentration - - Weight 78.9 kg (174 lb) 09/19/2024 11:10 AM EDT Height 170.2 cm (5' 7 ) 09/19/2024 11:10 AM EDT Body Mass Index 27.25 09/19/2024 11:10 AM EDT Plan of Treatment Upcoming Encounters Date Type Department Care Team (Late st Contact Info) Description 11/30/2024 11:00 AM EDT [facility] [place] - Obstetrics and Gynecology [address], [address] [place] [address] Vicky Arroyo MD [address] [facility] [facility] [address] [place] [address] Health Maintenance Due Date Last Done Comments [facility] Topic HIV Screening 2000 [facility] Topic Hepatitis C Screening 2000 [facility] Topic HPV Vaccines (1 - 3-dose series) 2015 [facility] Topic Tdap Vaccine (1 - Tdap) 2019 [facility] Topic Meningococcal G roup B Conjugate Vaccine (2 of 2 - Trumenba SCDM 2-dose series) 11/09/2019 05/11/2019 [facility] Topic Lipid Profile 5 years 2022 [facility] Topic Influenza (Flu) Seasonal (#1) 2025 03/15/2010 [facility] Topic Chlamydia Screening 09/19/2025 09/20/19 25 [facility] Topic Depression Screening 09/19/2025 025 [facility] Topic Cervical Cancer Screening 09/20/2027 09/19/2024, 09/19/2024 [facility] Topic HIB Vaccines Completed 2001, 2000, 2000, Additional history exists Procedures Procedure Name Priority Date/Time Associated Diagnosis Comments THINPREP TIS PAP REFLEX HPV MRNA E6/E7 Routine 09/19/2024 4:15 PM EDT Encounter for annual routine gynecological examination HPV MRNA E6/E7 Routine 09/19/2024 4:15 PM EDT Encounter for annual routine gynecological examination CHLAMYDIA AND GONORRHOEAE Routine 09/19/2024 4:15 PM EDT Encounter for annual routine gynecological examination from Last 3 Months Results * (ABNORMAL) Thinprep Tis Pap Reflex HPV MRNA E6/E7 (SEND OUT) (09/19/2024 4:15 PM EDT) PAP Diagnosis SEE COMMENT 10/01/2024 2:51 AM EDT [facility] Comment:Routine exam LMP: SEE COMMENT 10/01/2024 2:51 AM EDT [facility] Comment:09/09/2024 Prev. Pap: SEE COMMENT 10/01/2024 2:51 AM EDT [facility] Comment:0 Prev. Bx: SEE COMMENT 10/01/2024 2:51 AM EDT [facility] Comment:0 Source: SEE COMMENT 10/01/2024 2:51 AM EDT [facility] Comment:Endocervix Statement Of Adequacy: SEE COMMENT 10/01/2024 2:51 AM EDT [facility] Comment: Satisfactory for evaluation. Endocervical/transformation zone component present. General Categorization: SEE COMMENT(A) 10/01/2024 2:51 AM EDT [facility] Comment:Cytology Results: Ep ithelial Cell Abnormality Interpretation/Re sult: SEE COMMENT(A) 10/01/2024 2:51 AM EDT [facility] Comment: Atypical Squamous Cells of Undetermined Significance (ASC-US) Comment: SEE COMMENT 10/01/2024 2:51 AM EDT [facility] Comment: This Pap test has been evaluated with computer assisted technology. President And Chief Commercial Officer: SEE COMMENT 2024 2:51 AM EDT [facility] Comment: MRS, CT(ASCP) CT screening location: ??[facility], [place], [address] [place] [address], [place] [address] Slide preparation performed at: [facility], [address] [place] [id number] CLIA No. ??[id number] Pathologist: SEE COMMENT 10/01/2024 2:51 AM EDT [facility] Comment: Loi Jimenez M.D., Board Certified in Anatomic and Clinical Pathology and Cytopathology (electronic signature) [phone] Comments SEE COMMENT 10/01/2024 2:51 AM EDT [facility] Comment: EXPLANATORY NOTE: The Pap is a screening test for cervical cancer. It is not a diagnostic test and is subject to false negative and false positive results. It is most reliable when a satisfactory sample, regularly obtained, is submitted with relevant clinical findings and history, and when the Pap result is evaluated along with historic and current clinical information. Tissue Specimen from cervix or vagina / Unknown Non-blood Collection / Unknown 09/19/2024 4:15 PM EDT 09/19/2024 4:15 PM EDT Narrative [facility] - 10/01/2024 2:51 AM EDT Performing Organization Information: ?Site ID: [id number] ?Name: [id number] ?Address: [address] [place] [id number] ?Director: Malcom Washington M.D. Vicky Arroyo MD LAB PATHOLOGY/CYTOLOGY ORDE RHETT Final Result [facility] [address] [place] [address] * (ABNORMAL) HPV mRNA E6/E7 (SEND OUT) (09/19/2024 4:15 PM EDT) HPV MRNA E6/E7 Detected( A) Not Detected 10/01/2024 2:51 AM EDT [facility] Comment: Methodology: Stitch Cleaner-Mediated Amplification This assay detects E6/E7 viral messenger RNA (mRNA) from 14 high-risk HPV types (16,18,31,33,35,39,45,51,52,56,58,59,66,68). Cervical sources are required for HPV testing. If a vaginal source from a patient who has had a total hysterectomy with removal of cervix was submitted, please contact the testing laboratory for alternative testing options. For additional information, please refer to [email or web address]/faq/MZM178d5 (This link if provided for information/ educational purposes only.) Tissue Specimen from cervix or vagina / Unknown Non-blood Collection / Unknown 09/19/2024 4:15 PM EDT 09/19/2024 4:15 PM EDT Narrative [facility] - 10/01/2024 2:51 AM EDT Performing Organization Information: ?Site ID: [id number] ?Name: [id number] ?Address: [address] [place] [phone] ?Director: Malcom Washington M.D. Vicky Arroyo MD LAB MICROBIOLOGY - GENERAL ORDERABLES Final Result Performing Organization Address [facility] de Phone Number [facility] [address] [place] [phone] * Chlamydia and Gonorrhoeae (09/19/2024 4:15 PM EDT) [facility] Chlamydia trachomatis Negative Negative [facility] PAN[facility]NA[facility] 09/20/2024 3:06 AM EDT [facility] Neisseria gonorrhoeae Negative Negative [facility] 09/20/2024 3:06 AM EDT [facility] Swab Specimen from cervix or vagina / Unknown Non-blood Collection / Unknown 09/19/2024 4:15 PM EDT 09/19/2024 4:15 PM EDT Narrative [facility] - 09/20/2024 3:06 AM EDT This is not intended for the evaluation of suspected sexual abuse or for other medico-legal indications. Vicky Arroyo MD LAB MICROBIOLOGY - GENERAL ORDERABLES Final Result Performing Organization Address City/[facility] Co de Phone Number [facility] [address] [place] [address], [place] [phone] from Last 3 Months Insurance [employer] PPO
--- OUTSIDE RECORDS SUMMARY | 2024-11-12 15:46 | XMS_ITS | Encounter Summary ---
Author Organization [facility] Address [address] [place] [address] Phone Care Team Providers Care Patient Care Secretary Name Role Phone Abigail Ureña DO Primary Care Provider [phone] Encounter Details Date Type Department Care Team (Late st Contact Info) Description 02/12/2017 Conversion Encounter [facility] [address] [place] [address] Abigail Ureña DO [address] [place] [address] Social History Tobacco Use Types Packs/Day Years Used Date Smoking Tobacco: Never Comments:never smoker Comments Unknown Sex and Gender Information Value Date Recorded Sex Assigned at Not on file Legal Sex Female 7:12 PM EDT Gender Identity Not on file Sexual Orientation Not on file documented as of this encounter Plan of Treatment Not on file documented as of this encounter Visit Diagnoses Not on filedocumented in this encounter Care Teams Patient Care Secretary Relationship Specialty Start Date End Date Abigail Ureña DO PCP - General 11/17/16 05/04/17 documented as of this encounter
[2024-11-12 15:56] LABS: Alanine Aminotransferase 20 U/L (0-31); Albumin Level 4.3 g/dL (3.5-5.0); Alkaline Phosphatase 44 U/L (39-117); Anion Gap 11 (12-20); Aspartate Amino Transferase 23 U/L (5-31); Bilirubin Total 0.3 mg/dL (0.0-1.0); Blood Urea Nitrogen 11 mg/dL (9-16); Calcium 9.4 mg/dL (8.4-10.2); Carbon Dioxide 25 mmol/L (22-29); Chloride 107 mmol/L (96-108); Creatinine Clr Calc Pharmacy 131.6; Estimated Glomerular Filt Rate > 60; Glucose Random 85 mg/dL (60-115); Magnesium 2.1 mg/dL (1.6-2.6); Potassium 4.2 mmol/L (3.3-5.1); Sodium 139 mmol/L (135-145); Total Protein 7.3 g/dL (6.5-8.0)
[2024-11-12 15:59] LABS: HCG Quantitative < 2 mIU/mL
[2024-11-12 16:12] LABS: TSH reflex Free T4 1.32 uIU/mL (0.32-4.0)
[2024-11-12 16:17] LABS: Appearance Urine Clear; Color Urine Yellow; Glucose Urine UA Negative (Negative); Leukocyte Esterase Urine Negative (Negative); Nitrite Urine Negative (Negative); Urine Blood Negative (Negative); Urine Ketones Negative (Negative); Urine Protein Negative (Neg-Trace)
[2024-11-12 16:20] LABS: Influenza A PCR NEGATIVE (Negative); Influenza B PCR NEGATIVE (Negative); Resp Syncy Virus RNA Qual PCR NEGATIVE (Negative); SARS COV2 PCR INHOUSE NEGATIVE (Negative)
[2024-11-12 16:26] VITALS: BP 101/67; PULSE 60
[2024-11-12 16:27] VITALS: BP 102/65; PULSE 58
[2024-11-12 16:28] VITALS: BP 115/58; PULSE 68
[2024-11-12 16:32] VITALS: BP 115/58; PULSE 68; RESP 16; TEMP 36.9; O2SAT 99
== END 2024-11-12 16:33 | disposition home or self-care (01) ==
PROVIDERS: Physician Assistant Medical; Emergency Provider Emergency Medicine
DX: E86.0 Dehydration (principal); D64.9 Anemia, unspecified; I49.8 Other specified cardiac arrhythmias; R10.2 Pelvic and perineal pain; Z79.899 Other long term (current) drug therapy; Z03.818 Encounter for observation for suspected exposure to other biological agents ruled out
CPT/HCPCS: 0241U; 36415; 80053; 81003; 83735; 84443; 84702; 85025; 85610; 93005; 99283

== ENCOUNTER → 2024-11-12 14:51 | Outpatient (BNV) | payer BC, SELFPAY | PROVIDERS: Emergency Provider Emergency Medicine; Visit Provider Internal Medicine | DX: R53.1 Weakness (principal) | CPT/HCPCS: 93010 ==